=== PATIENT | female | born 1955 | race Caucasian/White ===

== ENCOUNTER 2020-10-29 10:43 | Outpatient (CLI) | payer OTHER, SELFPAY ==
--- NOTE | 2020-10-29 10:50 | MM_ITS ---
WS: [id number] Bilateral screening digital mammogram, 10/30/2020 Clinical Data: SCREENING Comparison: 01/16/2018, 01/13/2017, 03/05/2015, 02/22/2014, 02/21/2013, 10/01/2008. Findings: The breast parenchymal pattern shows heterogeneous density. No spiculated masses or clustered calcifi cations are seen. There are no secondary signs of carcinoma. There are calcifications in the biswas of small vessels. MM/[id number] Impression: 1. Negative bilateral mammogram unchanged. 2. Recommend annual screening mammograms. BIRADS: 1-Negative FOLLOW UP: 1 Year Follow-up The [employer] electric distribution checker was used.
== END 2020-10-29 10:44 | disposition home or self-care (01) ==
LOC: RADSHAW 10:49
PROVIDERS: Family Provider Internal Medicine; PCP Internal Medicine; Visit Provider Nurse Practitioner
DX: Z12.31 Encounter for screening mammogram for malignant neoplasm of breast (principal)
CPT/HCPCS: 77067

== ENCOUNTER 2020-12-05 14:00 | Outpatient (CLI) | payer OTHER, SELFPAY ==
--- NOTE | 2020-12-05 14:12 | US_ITS ---
WS: [id number] THYROID ULTRASOUND (TI-RADS CRITERIA) History: Elevated TSH.. Technique: Ultrasound examination of the thyroid and adjacent soft tissues is performed. FINDINGS: Right lobe: 3.9 cm x 1.1 cm x 1.4 cm. Volume: 3.2 cm3. Normal size and echotexture. No significant are dominant nodules are present. Lymph nodes: None. Left lobe: 3.6 cm x 0.8 cm x 1.1 cm. Volume: 1.5 cm3. Normal size and echotexture. No significant or dominant nodules are present. Lymph nodes: None. Isthmus: 0.2 cm. Well-circumscribed nearly isoechoic nodule in the LEFT isthmus measures 4 x 3 x 6 mm . No further workup necessary. US/US thyroid [id number] Impression: TR1 Recommendation:No FNA or follow-up. No suspicious thyroid nodules for which follow-up or biopsy is necessary.
== END 2020-12-05 14:01 | disposition home or self-care (01) ==
LOC: US 14:02
PROVIDERS: PCP Nurse Practitioner; Visit Provider Nurse Practitioner
DX: R94.6 Abnormal results of thyroid function studies (principal)
CPT/HCPCS: 76536

== ENCOUNTER → 2021-08-19 09:44 | Outpatient (BNVA) | payer OTHER, SELFPAY | PROVIDERS: PCP Nurse Practitioner; Visit Provider Internal Medicine Cardiovascular Disease | DX: R07.9 Chest pain, unspecified (principal); I10 Essential (primary) hypertension; R00.0 Tachycardia, unspecified; I95.9 Hypotension, unspecified; E78.5 Hyperlipidemia, unspecified; M85.80 Other specified disorders of bone density and structure, unspecified site | CPT/HCPCS: 93005; 99204 ==

== ENCOUNTER → 2022-02-17 14:06 | Outpatient (BNVA) | payer OTHER, SELFPAY | PROVIDERS: PCP Nurse Practitioner; Visit Provider Internal Medicine Cardiovascular Disease | DX: R00.0 Tachycardia, unspecified (principal); I95.9 Hypotension, unspecified; I10 Essential (primary) hypertension | CPT/HCPCS: 99214 ==

== ENCOUNTER → 2023-02-16 14:05 | Outpatient (BNVA) | payer OTHER, SELFPAY | PROVIDERS: PCP Nurse Practitioner; Visit Provider Internal Medicine Cardiovascular Disease | DX: R00.0 Tachycardia, unspecified (principal); I10 Essential (primary) hypertension | CPT/HCPCS: 99214 ==

== ENCOUNTER → 2024-02-08 14:00 | Outpatient (BNVA) | payer OTHER, SELFPAY | PROVIDERS: PCP Nurse Practitioner; Visit Provider Internal Medicine | DX: I10 Essential (primary) hypertension (principal); E78.5 Hyperlipidemia, unspecified; M85.80 Other specified disorders of bone density and structure, unspecified site | CPT/HCPCS: 99213 ==

== ENCOUNTER → 2025-02-06 13:44 | Outpatient (BNVA) | payer OTHER, SELFPAY | PROVIDERS: PCP Nurse Practitioner; Visit Provider Internal Medicine | DX: I10 Essential (primary) hypertension (principal) | CPT/HCPCS: 99213 ==